=== PATIENT | male | born 2000 ===

== ENCOUNTER 2024-05-19 19:57 | Emergency (ER) | payer SELFPAY ==
[2024-05-19] MEDS: Acetaminophen/HYDROcodone 325-10 MG Tab PO ONE (20:08)
[2024-05-19] MEDS: Ketorolac 30 MG/ML SDV IM ONE (20:09)
== END 2024-05-19 21:28 ==
LOC: DL.ED 19:57
DX: S93.402A Sprain of unspecified ligament of left ankle, initial encounter (principal); S82.402S Unspecified fracture of shaft of left fibula, sequela; Z87.891 Personal history of nicotine dependence; W18.2XXA Fall in (into) shower or empty bathtub, initial encounter
CPT/HCPCS: 73610; 96372; 99284; A9270; J1885

== ENCOUNTER 2024-05-24 19:16 | Emergency (ER) | payer OTHER ==
[2024-05-24] MEDS: Ketorolac 30 MG/ML SDV IM ONE (19:44)
== END 2024-05-24 19:56 | disposition home or self-care (01) ==
LOC: DL.ED 19:16
DX: S43.101A Unspecified dislocation of right acromioclavicular joint, initial encounter (principal); X50.1XXA Overexertion from prolonged static or awkward postures, initial encounter
CPT/HCPCS: 73030; 96372; 99283; J1885